=== PATIENT | male | born 1940 | race Caucasian/White ===

== ENCOUNTER 2019-01-01 17:24 | Emergency (ER) | payer MEDICARE, BC ==
[~2019-01-01] VITALS: Ht 177.8 cm; Wt 103.6 kg
[2019-01-01 17:48] VITALS: TEMP 99.3
[2019-01-01] MEDS ORDERED: ALLEGRA-D 24HR1 T24 PO (18:16)
[2019-01-01] MEDS ORDERED: PREDNISONE20 MG PO (19:23)
[2019-01-01] MEDS ORDERED: TAMIFLU 75MG75 MG PO (19:23)
[2019-01-01 19:45] VITALS: BP 122/76; PULSE 98
== END 2019-01-01 19:45 | disposition home or self-care (01) ==
LOC: COL.ER 17:24
DX: J10.1 Influenza due to other identified influenza virus with other respiratory manifestations (principal); R06.02 Shortness of breath; Z88.2 Allergy status to sulfonamides; F17.210 Nicotine dependence, cigarettes, uncomplicated
CPT/HCPCS: J7512

== ENCOUNTER 2020-05-13 08:29 | Emergency (ER) | payer MEDICARE, BC ==
[~2020-05-13] VITALS: Ht 177.8 cm; Wt 96.4 kg
[~2020-05-13 08:29] MED LIST: ALLEGRA-D 24HR1 T24 PO; PREDNISONE20 MG PO; TAMIFLU 75MG75 MG PO
[2020-05-13 08:58] LABS: BASO # 0.1 (0.0-0.2); BASO % 0.8 % (0.0-2.0); EOS # 0.3 (0.0-0.7); EOS % 4.2 % (0-4.0); GRAN % 60.6 % (42.2-75.2); HEMATOCRIT 39.1 % (42.0-52.0); HEMOGLOBIN 12.5 g/dl (13.5-18.0); LYMPH # 1.8 (1.2-3.4); MEAN CELL VOLUME 94 fl (80.0-100.0); MEAN CORPUSCULAR HEMOGLOBIN 30 pg (27.0-31.0); MEAN CORPUSCULAR HGB CONC 32 g/dl (33.0-37.0); MEAN PLATELET VOLUME 9.8 fl (7.4-10.4); MONO # 0.5 (0.1-0.6); MONO % 6.8 % (1.7-9.3); PLATELET COUNT 243 K/mm3 (130-400); RED BLOOD COUNT 4.14 M/mm3 (4.20-5.60); REDCELL DISTRIBUTION WIDTH-CV 13.7 % (11.5-14.5)
[2020-05-13 09:05] LABS: INR 1.1 (0.8-3.0)
[2020-05-13 09:08] LABS: ALANINE AMINOTRANSFERASE 14 U/L (4-49); ALBUMIN 4.1 gm/dL (3.5-5.0); ALKALINE PHOSPHATASE 64 U/L (50-136); ANION GAP 9 mmol/L (7-16); AST,SGOT 21 U/L (15-37); BILIRUBIN,TOTAL 0.3 mg/dL (0.0-1.0); BLOOD UREA NITROGEN 18 mg/dL (9-20); CALCIUM 8.7 mg/dL (8.4-10.2); CARBON DIOXIDE 22 mmol/L (22-30); CHLORIDE 110 mmol/L (98-107); CREATININE, serum 1.04 (0.66-1.25); GLUCOSE 110 mg/dL (74-106); PARTIAL THROMBOPLASTIN TIME 33.1 SECONDS (26.0-37.0); POTASSIUM 4.1 mmol/L (3.4-5.0); SODIUM 140 mmol/L (137-145)
[2020-05-13 09:31] LABS: TROPONIN-I < 0.012 ng/mL (0.000-0.035)
[2020-05-13] MEDS ORDERED: SINGULAIR 110 MG/TAB PO (10:00)
[2020-05-13 10:37] VITALS: BP 127/60; PULSE 57
== END 2020-05-13 10:37 | disposition home or self-care (01) ==
LOC: COL.ER 08:29
PROVIDERS: Family Medicine
DX: R00.2 Palpitations (principal); Z88.2 Allergy status to sulfonamides; Z87.891 Personal history of nicotine dependence